=== PATIENT | male | born 1935 | race Caucasian/White ===

== ENCOUNTER 2021-07-11 10:54 | Observation (INO) | payer MEDICARE, MEDICAID ==
[~2021-07-11] VITALS: Ht 175.3 cm; Wt 111.6 kg
[2021-07-11 11:33] VITALS: BP 146/75
[2021-07-11] MEDS ORDERED: ALIR75PE5 SC (11:44)
[2021-07-11] MEDS ORDERED: DIGO125T81 PO (11:44)
[2021-07-11] MEDS ORDERED: ALLO100T30 PO (11:44)
[2021-07-11] MEDS ORDERED: FURO-93 PO (11:44)
[2021-07-11] MEDS ORDERED: ASCO100T5 PO (11:44)
[2021-07-11] MEDS ORDERED: APIX2.5T PO (11:44)
[2021-07-11] MEDS ORDERED: SERT100T32 PO (11:44)
[2021-07-11] MEDS ORDERED: ASPI81TA45 PO (11:44)
[2021-07-11] MEDS ORDERED: PANT40TA3 PO (11:44)
[2021-07-11 12:06] LABS: BASOPHILS % (AUTO) 1 % (0-1); EOSINOPHILS % (AUTO) 1 % (1-7); LYMPHOCYTES % (AUTO) 17 % (22-44); MEAN CORPUSCULAR HEMOGLOBIN 35.9 pg (27.5-34.5); MEAN CORPUSCULAR HGB CONC 32.6 g/dL (33.2-36.2); MEAN PLATELET VOLUME 8.7 fL (7.4-10.4); MONOCYTES % (AUTO) 7 % (2-9); NEUTROPHILS % (AUTO) 74 % (42-75); PLATELET COUNT 183 x10^3/uL (130-400); RED BLOOD COUNT 2.77 x10^6/uL (4.38-5.82); RED CELL DISTRIBUTION WIDTH 18.8 % (9.4-14.8)
[2021-07-11 12:19] LABS: ANISOCYTOSIS 2+
[2021-07-11 12:20] LABS: <PLATELET ESTIMATE> ADEQUATE; <PLT MORPHOLOGY> NORMAL PLT MORPH
[2021-07-11 12:21] LABS: ANION GAP 8 mmol/L (5-15); CALCIUM 8.8 mg/dL (8.5-10.1); CHLORIDE 103 mmol/L (98-107)
[2021-07-11 12:23] LABS: CREATININE 1.66 mg/dL (0.7-1.3)
[2021-07-11] MEDS ORDERED: MIDAZOLAM 1 MG/ML, 5ML ONE (12:58)
[2021-07-11] MEDS ORDERED: FENTANYL PF 100 MCG/2ML ONE (12:58)
[2021-07-11] MEDS ORDERED: HEPARIN 1,000 UNITS/ML, 10ML ONE (12:59)
[2021-07-11] MEDS ORDERED: LIDOCAINE-MPF 1%, 5ML ONE (12:59)
[2021-07-11] MEDS ORDERED: TICAGRELOR 90 MG TABLET ONE (12:59)
[2021-07-11] MEDS ORDERED: BIVALIRUDIN 250 MG ONE (12:59)
[2021-07-11] MEDS ORDERED: VERAPAMIL 2.5 MG/ML, 2ML ONE (12:59)
[2021-07-11] MEDS ORDERED: LIDOCAINE 1%, 20ML ONE (13:33)
[2021-07-11 21:20] VITALS: BP 142/66
[2021-07-11] MEDS: APIXABAN 2.5 MG TABLET PO SCH (21:21)
[2021-07-12 01:23] VITALS: BP 123/70
[2021-07-12 07:26] VITALS: BP 134/68
[2021-07-12] MEDS: APIXABAN 2.5 MG TABLET PO SCH (08:43)
[2021-07-12] MEDS ORDERED: ASPIRIN 81 MG TABLET EC PO SCH (09:00)
[2021-07-12] MEDS ORDERED: PANTOPRAZOLE 40MG TABLET PO SCH (09:00)
[2021-07-12] MEDS ORDERED: ALLOPURINOL 300 MG TABLET PO SCH (09:00)
[2021-07-12] MEDS ORDERED: DIGOXIN 0.125 MG TABLET PO SCH (09:00)
[2021-07-12] MEDS ORDERED: FUROSEMIDE 20 MG TABLET PO SCH (09:00)
[2021-07-12] MEDS ORDERED: SERTRALINE 100MG TABLET PO SCH (09:00)
== END 2021-07-12 14:02 | disposition home or self-care (01) ==
LOC: CACL 10:54 → 5SO 15:10 → CACL 23:06 → 5SO 23:06
PROVIDERS: ADMIT Internal Medicine Cardiovascular Disease; ATTEND Internal Medicine Cardiovascular Disease
DX: I25.5 Ischemic cardiomyopathy (principal); I25.10 Atherosclerotic heart disease of native coronary artery without angina pectoris; I47.1 Supraventricular tachycardia; I12.9 Hypertensive chronic kidney disease with stage 1 through stage 4 chronic kidney disease, or unspecified chronic kidney disease; N18.9 Chronic kidney disease, unspecified; I49.9 Cardiac arrhythmia, unspecified; E78.5 Hyperlipidemia, unspecified; I48.20 Chronic atrial fibrillation, unspecified; D68.69 Other thrombophilia; I45.9 Conduction disorder, unspecified; G47.33 Obstructive sleep apnea (adult) (pediatric); M10.9 Gout, unspecified; E66.9 Obesity, unspecified; K21.9 Gastro-esophageal reflux disease without esophagitis; Z95.1 Presence of aortocoronary bypass graft; Z79.899 Other long term (current) drug therapy
CPT/HCPCS: 36415; 36600; 80048; 82803; 85025; 93459; 99156; C1769; C1894; G0378; J1644; J2250; J3010; J3490; Q9967; J0583